=== PATIENT | male | born 1955 | race Caucasian/White ===

== ENCOUNTER 2020-12-31 09:05 | Day surgery (SDC) | payer MEDICARE ==
[~2020-12-31] VITALS: Ht 167.6 cm; Wt 80.3 kg
--- NOTE | ~2020-12-31 | OP ---
PATIENT NAME: DOC GILLETTE MEDICAL RECORD: [id number] :53 LOCATION:[facility] ADMISSION DATE: SURGEON: CECELIA NGUYEN MD DATE OF OPERATION: 12/31/2020 PREOPERATIVE DIAGNOSES: 1. Right shoulder pain/impingement. 2. Long head biceps tendon rupture. 3. Partial rotator cuff tear. POSTOPERATIVE DIAGNOSES: 1. Right shoulder pain/impingement. 2. Long head biceps tendon rupture. 3. Partial rotator cuff tear. PROCEDURE PERFORMED: 1. Right shoulder scope with subacromial decompression and limited glenohumeral debridement. 2. Mini open rotator cuff repair. 3. Open biceps tenodesis. INDICATIONS FOR THE PROCEDURE: Mr. Gillette is a 65-year-old male with history of right shoulder pain and impingement. He has been having pain off and on for his shoulder for some time now, but acutely injured his biceps about 4 weeks ago. He was throwing bags of topsoil over a fence when he felt a pop in his shoulder and then developed a massiel deformity of the biceps. He was initially seen [facility] and then was seen in my office for evaluation. We talked about options for conservative versus surgical management. He elected to proceed with surgery for operative repair of the biceps tendon and during that time we discussed evaluation of the rotator cuff and indicated procedures as well. Risks, benefits and alternatives of surgery were discussed with the patient and consent was obtained. DESCRIPTION OF PROCEDURE: The patient was met in the holding area where his identity and confirmation of procedure was performed. The right upper extremity was marked. He was taken to the operating room where he was placed supine on the operating table, and anesthesia was administered. He was then positioned in the beach chair position and extremities were positioned and padded appropriately. Right upper extremity was prepped and draped in a sterile fashion. The patient received preoperative antibiotics and timeout was performed before initiating the case. On initiation of the case, the diagnostic shoulder arthroscopy was performed. Subacromial space was infiltrated with 20 mL of 0.25% Marcaine with epinephrine. We then placed our posterior portal, inserted the camera, placed our anterior portal through the rotator cuff interval under direct visualization. A diagnostic shoulder arthroscopy was performed. There was significant fraying at the superior and anterior labrum. There was a small area of grade II chondromalacia at the central glenoid. There was also fraying around the posterior labrum. There was complete rupture at the biceps tendon at its attachment at the superior labrum. There was partial undersurface tearing of the rotator cuff up to approximately 75% involving the supraspinatus tendon. Limited glenohumeral debridement was performed of the labrum and the stump of the biceps and the undersurface of the rotator cuff. We then tagged the partial thickness rotator cuff tear with a suture and moved to the subacromial space. In the subacromial space, there was diffuse thickening of the bursa and the spur at the anterior aspect of the acromion. The rotator OPERATIVE REPORT [id number] DOC GILLETTE G cuff was inspected and probe was able to be easily inserted at the tag suture. We therefore elected to proceed with rotator cuff repair as well. First, we performed the subacromial decompression using cautery, shaver and a bur. The undersurface of the acromion was debrided. The coracoacromial ligament was taken down. The bone spur at the undersurface of the acromion was removed. Before and after images were obtained. We then transitioned to a mini open procedure for the rotator cuff repair and the remainder of the case. Incision for our lateral portal was extended and we dissected down through the deltoid to the lateral edge of the proximal humerus. Rotator cuff was identified and the tagged area was inspected and again felt to have approximately 75% involvement. The rotator cuff was released at dissection extending approximately 1.5 cm using a knife and cautery. Footprint was then debrided with cautery, rongeur and a bur was used to freshen the bone. A [place] suture anchor was placed with 2.4 tape at the medial footprint. A scorpion suture passer was then used to pass the tape through the rotator cuff tendon. The 2 suture strands were passed and then brought down and tightened securely for a lateral row with ReelX [place] knotless anchor. This provided good reapproximation of our rotator cuff. Wound was irrigated thoroughly with saline. We then moved to the long head biceps tenodesis portion of the case. There was complete rupture of the long head of the biceps from its attachment at the superior labrum. We were able to palpate the long head of the biceps in the arm just below the inferior border of the pectoralis tendon. We made an incision in this area to perform open subpectoral biceps tenodesis. Incision was made and we dissected down through the skin and subcutaneous tissue to the overlying fascia. The interval between the deltoid and pectoralis was identified. We were able to continue our deep dissection deep, dished out the inferior border of the pectoralis muscle. We dissected down to the humerus and we were then able to identify the long head of the biceps tendon. The tendon was freed up from the adhesions and then Allis was used to retrieve the tendon end. A FiberWire suture was placed through the end of the tendon. We then began applying traction to help stretch the contracted biceps. At this point, the tendon released from its adhesions and we were able to stretch out the remainder of the tendon and then begin finger dissection around the tendon to completely release the adhesions around the biceps itself. There was significant scarring around the biceps, but we were able to free up most of the adhesions to allow for good mobilization and reapproximation of our tendon edge. The inferior border of the pectoralis muscle was released to expose the bicipital groove. A Krackow stitch was placed through the biceps tendon extending approximately 4 cm down the tendon across at its musculotendinous attachment and then back up the tendon. We then placed a [place] Icon[employer] suture anchor subpectoral at the bicipital groove and securely fastened to the bone. The ends of the biceps tendon were then tied down to the chronic suture anchor strands. These were initially tied down in a mattress-type fashion and then the ends of the Krackow stitch were tied to those by chronic suture ends. A second set of suture ends from the anchor was placed through the tendon more distal and tied down in a mattress fashion as well. This provided good reapproximation of the biceps tendon and the tone of the tendon appeared to be near normal. I was able to fully extend the elbow, felt to have good tensioning. The wound was then irrigated thoroughly with saline. The inferior edge of the pectoralis tendon was repaired with #2 Force Fiber suture. The interval for our approach was then closed with 3-0 Vicryl. The subcutaneous skin was closed with Vicryl and the skin was closed with nylon. We then moved to our rotator cuff incision and closed it with Vicryl and nylon as well. Portal sites were also closed with OPERATIVE REPORT [id number] DOC GILLETTE. This completed our procedure. Sterile dressing was applied. The patient was placed into a sling. He was turned back over to anesthesia where he was awakened, extubated, and taken to recovery room in stable condition. POSTOPERATIVE PLAN: The patient is going to return home with his family today. He is to remain in the sling at all times. Instructions for no shoulder range of motion and no active elbow range of motion. He can use the other arm to perform passive elbow range of motion, but that is all I would like to do now for the next couple of weeks. We will plan to see him back in clinic in 2 weeks. ANESTHESIA: General with peripheral nerve block. COMPLICATIONS: None. ESTIMATED BLOOD LOSS: 25 mL. TRANSINT:[id number] Voice Confirmation ID: [id number] DOCUMENT ID: [id number] CECELIA NGUYEN MD CC: [id number] DICTATION DATE: 12/31/202001 COPY CAMERA OPERATOR: 12/31/202201 [facility] [place] 12/31/20 [id number] [place] [address]
[~2020-12-31 09:05] MED LIST: IBUPROFEN800 MG PO
[2020-12-31 09:30] LABS: HEMATOCRIT 44.2 % (42.0-54.0); MCHC 33.9 g/dL (31.0-37.0); MCV 91.3 fL (80.0-100.0); MEAN PLATELET VOLUME 8.9 fL (7.4-10.4); RBC 4.84 10x6/uL (4.20-6.10); RDW 12.2 % (11.5-14.5); WBC 5.5 10x3/uL (4.8-10.8)
[2020-12-31] MEDS ORDERED: LIPITOR40 MG PO (09:55)
[2020-12-31 09:56] VITALS: BP 169/94; Ht 167.6 cm; Wt 80.3 kg
--- NOTE | 2020-12-31 21:13 | NUR ---
1999 DAUGHTER GIVEN RX TO DROP OFF, PT DENIES PAIN TOLERATING WATER. RIGHT ARM IN SLING AND SWATH. ICE PACK MAINTAINED. GOOD CIRCULATION TO RT HAND. UNABLE TO WIGGLE AND FEEL. 2029 DAUGHTER IN ROOM AND PT STATED HE WAS READY TO GO HOME, IVS REMOVED X2 TO RIGHT HAND. INSTRUCTIONS GIVEN TO DAUGHTER AND PT. WITH PICTURES OF SCOPE TO SHOULDER FROM OR. ASSISTED PT GETTING DRESSED.
== END 2020-12-31 21:00 | disposition home or self-care (01) ==
LOC: D.OPS 09:05
PROVIDERS: Anesthesiology; ATTEND Orthopaedic Surgery
DX: M25.511 Pain in right shoulder (principal); M75.41 Impingement syndrome of right shoulder; M75.101 Unspecified rotator cuff tear or rupture of right shoulder, not specified as traumatic; S46.111A Strain of muscle, fascia and tendon of long head of biceps, right arm, initial encounter